=== PATIENT | female | born 1955 | race Caucasian/White ===

== ENCOUNTER 2018-01-31 13:48 | Inpatient (IN) | payer OTHER ==
[2018-01-31] MEDS: SOD CHLORIDE 0.9% 1,000 ML IV (14:48)
[2018-01-31] MEDS: morphine 4 MG/ML VIAL IV (14:48)
[2018-01-31] MEDS: ONDANSETRON 4 MG INJ IV (14:48)
[2018-01-31 14:53] LABS: ADD MAN DIFF? NO
[2018-01-31 14:55] LABS: BASOPHILS % 0.5 % (0.0-2.0); EOSINOPHILS # 0.2 10^3/ul (0.0-0.5); EOSINOPHILS % 2.5 % (0.0-7.0); HEMOGLOBIN 14.5 g/dl (12.0-16.0); LYMPHOCYTES # 1.5 10^3/ul (0.8-2.9); LYMPHOCYTES % 25.6 % (15.0-51.0); MEAN CORPUSCULAR HEMOGLOBIN 28.4 pg (29.0-33.0); MEAN CORPUSCULAR VOLUME 86.1 fl (82.0-101.0); MEAN PLATELET VOLUME 9.6 fl (7.4-10.4); MONOCYTE # 0.5 10^3/ul (0.3-0.9); MONOCYTES % 8.6 % (0.0-11.0); NEUTROPHIL # 3.8 10^3/ul (1.6-7.5); NEUTROPHILS % 62.6 % (39.0-77.0); PLATELET COUNT 268 10^3/UL (140-415); RED BLOOD COUNT 5.11 10^6/ul (4.20-5.40); RED CELL DISTRIBUTION WIDTH 12.4 % (11.5-14.5)
[2018-01-31 15:14] LABS: ALANINE AMINOTRANSFERASE 47 IU/L (13-69); ALBUMIN 4.1 g/dl (3.3-4.9); ALBUMIN/GLOBULIN RATIO 1.17; ALKALINE PHOSPHATASE 63 IU/L (42-121); ANION GAP 13 (8-16); ASPARTATE AMINO TRANSFERASE 37 IU/L (15-46); BILIRUBIN,INDIRECT 0.7 mg/dl (0-1.1); BILIRUBIN,TOTAL 0.7 mg/dl (0.2-1.3); BLOOD UREA NITROGEN 9 mg/dl (7-20); CALCIUM 9.5 mg/dl (8.4-10.2); CARBON DIOXIDE 29 mmol/L (21-31); CHLORIDE 107 mmol/L (97-110); CREATININE 1.14 mg/dl (0.44-1.00); GLUCOSE 104 mg/dl (70-220); LIPASE 105 U/L (23-300); POTASSIUM 3.7 mmol/L (3.5-5.1); SODIUM 145 mmol/L (135-144); TOTAL PROTEIN 7.6 g/dl (6.1-8.1)
[2018-01-31 17:09] LABS: ADD UMIC YES; UR ASCORBIC ACID NEGATIVE (NEGATIVE); UR BACTERIA FEW /HPF (NONE SEEN); UR BILIRUBIN (Dip) NEGATIVE (NEGATIVE); UR BLOOD (Dip) 1+ mg/dL (NEGATIVE); UR CLARITY CLEAR (CLEAR); UR COLOR STRAW (YELLOW); UR GLUCOSE (Dip) NEGATIVE (NEGATIVE); UR KETONES (Dip) NEGATIVE (NEGATIVE); UR LEUKOCYTE ESTERASE (Dip) 2+ Leu/ul (NEGATIVE); UR NITRITE (Dip) NEGATIVE (NEGATIVE); UR NONSQUAMOUS EPITHELIAL CELL 1 /HPF (NONE SEEN); UR RBC 3 /HPF (0-5); UR SPECIFIC GRAVITY (Dip) 1.008 (1.003-1.030); UR SQUAMOUS EPITHELIAL CELL FEW /HPF (FEW); UR TOTAL PROTEIN (Dip) NEGATIVE (NEGATIVE); UR UROBILINOGEN (Dip) NEGATIVE (NEGATIVE); UR WBC 9 /HPF (0-5)
[2018-01-31] MEDS ORDERED: ACETAMINOPHEN 325 MG TAB PO (18:30)
[2018-01-31] MEDS ORDERED: NACL 0.9% 3 ML SYG IV (18:30)
[2018-01-31] MEDS ORDERED: ONDANSETRON 4 MG INJ IV ×2 (18:30)
[2018-01-31 18:56] LABS: LACTIC ACID 0.9 mmol/L (0.5-2.0)
[2018-01-31] MEDS: PANTOPRAZOLE 40 MG INJ IV (19:10)
[2018-01-31] MEDS: DEXTROSE 5%-0.45% NACL 1,000 ML IV (19:11)
[2018-01-31] MEDS: HYDROmorphONE 0.5 MG/0.5 ML SYG IV (19:43)
[2018-02-01] MEDS: PANTOPRAZOLE 40 MG INJ IV ×2 (06:45→18:06)
[2018-02-01 06:55] LABS: ADD MAN DIFF? NO
[2018-02-01 07:05] LABS: WHITE BLOOD COUNT 4.1 10^3/ul (4.8-10.8)
[2018-02-01 07:05] LABS: BASOPHILS % 0.7 % (0.0-2.0); EOSINOPHILS # 0.3 10^3/ul (0.0-0.5); HEMATOCRIT 42.3 % (37.0-47.0); HEMOGLOBIN 13.8 g/dl (12.0-16.0); LYMPHOCYTES # 1.3 10^3/ul (0.8-2.9); LYMPHOCYTES % 31.9 % (15.0-51.0); MEAN CORPUSCULAR HEMOGLOBIN 28.4 pg (29.0-33.0); MEAN CORPUSCULAR HGB CONC 32.6 g/dl (32.0-37.0); MEAN PLATELET VOLUME 9.7 fl (7.4-10.4); MONOCYTE # 0.4 10^3/ul (0.3-0.9); MONOCYTES % 8.7 % (0.0-11.0); NEUTROPHIL # 2.2 10^3/ul (1.6-7.5); NEUTROPHILS % 52.5 % (39.0-77.0); PLATELET COUNT 245 10^3/UL (140-415); RED BLOOD COUNT 4.86 10^6/ul (4.20-5.40); RED CELL DISTRIBUTION WIDTH 12.5 % (11.5-14.5)
[2018-02-01 07:38] LABS: ALANINE AMINOTRANSFERASE 38 IU/L (13-69); ALBUMIN 3.8 g/dl (3.3-4.9); ALBUMIN/GLOBULIN RATIO 1.31; ALKALINE PHOSPHATASE 54 IU/L (42-121); ANION GAP 11 (8-16); ASPARTATE AMINO TRANSFERASE 39 IU/L (15-46); BILIRUBIN,INDIRECT 0.8 mg/dl (0-1.1); BILIRUBIN,TOTAL 0.8 mg/dl (0.2-1.3); BLOOD UREA NITROGEN 10 mg/dl (7-20); CALCIUM 8.9 mg/dl (8.4-10.2); CARBON DIOXIDE 28 mmol/L (21-31); CHLORIDE 107 mmol/L (97-110); CHOL/HDL RATIO 4.2 RATIO; CHOLESTEROL 206 mg/dl (100-200); CREATININE 0.93 mg/dl (0.44-1.00); GLUCOSE 96 mg/dl (70-220); HDL CHOLESTEROL 48 mg/dl (35-98); LDL CHOLESTEROL,CALCULATED 138 mg/dl; MAGNESIUM 1.9 mg/dl (1.7-2.5); PHOSPHORUS 3.8 mg/dl (2.5-4.9); POTASSIUM 3.5 mmol/L (3.5-5.1); SODIUM 142 mmol/L (135-144); TOTAL PROTEIN 6.7 g/dl (6.1-8.1); TRIGLYCERIDES 99 mg/dl (0-149)
[2018-02-01 07:54] LABS: HEMOGLOBIN A1C 5.7 % (0-5.9)
[2018-02-01] MEDS: DEXTROSE 5%-0.45% NACL 1,000 ML IV ×2 (08:13→14:54)
[2018-02-01] MEDS: ATENOLOL 25 MG TAB PO (08:18)
[2018-02-01] MEDS ORDERED: CEFAZOLIN 1 GM INJ (11:08)
[2018-02-01] MEDS ORDERED: PROPOFOL 20 ML (11:08)
[2018-02-01] MEDS ORDERED: ROCURONIUM 50 MG INJ (11:08)
[2018-02-01] MEDS ORDERED: MIDAZOLAM 1 MG/ML 2 ML INJ (11:08)
[2018-02-01] MEDS ORDERED: ROPIVACAINE 0.5 % 30 ML VIAL (11:09)
[2018-02-01] MEDS ORDERED: BUPIVACAINE 0.5% (SDV) 30 ML INJ (11:48)
[2018-02-01] MEDS: BUPIVACAINE 0.25% (MPF) 30 ML INJ (12:22)
[2018-02-01] MEDS ORDERED: MEPERIDINE 25 MG INJ IV (12:30)
[2018-02-01] MEDS ORDERED: LABETALOL HCL 20MG INJ IV (12:30)
[2018-02-01] MEDS ORDERED: DIPHENHYDRAMINE 50 MG INJ IV (12:30)
[2018-02-01] MEDS ORDERED: HYDROmorphONE 1 MG/5 ML IV SYRINGE IV ×2 (12:30)
[2018-02-01] MEDS: hydrALAzine 20 MG INJ IV ×2 (13:31→13:39)
[2018-02-01] MEDS: ONDANSETRON 4 MG INJ IV (13:43)
[2018-02-01] MEDS: HYDROmorphONE 1 MG/5 ML IV SYRINGE IV (13:44)
[2018-02-01] MEDS: HYDROmorphONE 0.5 MG/0.5 ML SYG IV ×3 (14:53→23:27)
[2018-02-01] MEDS ORDERED: CEFAZOLIN 1 GM/50 ML (PMX) 50 ML IVPB (21:00)
[2018-02-02] MEDS ORDERED: EPHEDrine SULFATE 50 MG/5 ML SYG (00:10)
[2018-02-02] MEDS ORDERED: NEOSTIGMINE 3 MG/3 ML SYRINGE (00:10)
[2018-02-02] MEDS ORDERED: ONDANSETRON 4 MG INJ (00:10)
[2018-02-02] MEDS ORDERED: METOCLOPRAMIDE 10 MG INJ (00:10)
[2018-02-02] MEDS ORDERED: PROPOFOL 0 ML (00:10)
[2018-02-02] MEDS ORDERED: GLYCOPYRROLATE 0.4 MG INJ ×2 (00:10)
[2018-02-02] MEDS: PANTOPRAZOLE 40 MG INJ IV (05:36)
[2018-02-02] MEDS: DEXTROSE 5%-0.45% NACL 1,000 ML IV ×2 (05:36→10:16)
[2018-02-02] MEDS: HYDROmorphONE 0.5 MG/0.5 ML SYG IV (05:42)
[2018-02-02 06:03] LABS: ADD MAN DIFF? NO
[2018-02-02 06:11] LABS: BASOPHILS % 0.5 % (0.0-2.0); EOSINOPHILS # 0.2 10^3/ul (0.0-0.5); EOSINOPHILS % 3.8 % (0.0-7.0); HEMATOCRIT 40.5 % (37.0-47.0); HEMOGLOBIN 13.2 g/dl (12.0-16.0); LYMPHOCYTES # 1.5 10^3/ul (0.8-2.9); LYMPHOCYTES % 23.9 % (15.0-51.0); MEAN CORPUSCULAR HEMOGLOBIN 28.5 pg (29.0-33.0); MEAN CORPUSCULAR HGB CONC 32.6 g/dl (32.0-37.0); MEAN CORPUSCULAR VOLUME 87.5 fl (82.0-101.0); MEAN PLATELET VOLUME 9.7 fl (7.4-10.4); MONOCYTE # 0.5 10^3/ul (0.3-0.9); MONOCYTES % 8.3 % (0.0-11.0); NEUTROPHIL # 3.8 10^3/ul (1.6-7.5); NEUTROPHILS % 63.3 % (39.0-77.0); PLATELET COUNT 250 10^3/UL (140-415); RED BLOOD COUNT 4.63 10^6/ul (4.20-5.40); RED CELL DISTRIBUTION WIDTH 12.7 % (11.5-14.5)
[2018-02-02 06:11] LABS: WHITE BLOOD COUNT 6.1 10^3/ul (4.8-10.8)
[2018-02-02 06:38] LABS: PHOSPHORUS 4.7 mg/dl (2.5-4.9)
[2018-02-02 06:45] LABS: ALANINE AMINOTRANSFERASE 61 IU/L (13-69); ALBUMIN 3.5 g/dl (3.3-4.9); ALBUMIN/GLOBULIN RATIO 1.12; ALKALINE PHOSPHATASE 52 IU/L (42-121); ANION GAP 11 (8-16); ASPARTATE AMINO TRANSFERASE 79 IU/L (15-46); BILIRUBIN,INDIRECT 0.7 mg/dl (0-1.1); BILIRUBIN,TOTAL 0.7 mg/dl (0.2-1.3); BLOOD UREA NITROGEN 9 mg/dl (7-20); CARBON DIOXIDE 31 mmol/L (21-31); CHLORIDE 104 mmol/L (97-110); CREATININE 0.97 mg/dl (0.44-1.00); GLUCOSE 88 mg/dl (70-220); POTASSIUM 3.3 mmol/L (3.5-5.1); SODIUM 143 mmol/L (135-144); TOTAL PROTEIN 6.6 g/dl (6.1-8.1)
[2018-02-02] MEDS: ATENOLOL 25 MG TAB PO (09:50)
[2018-02-02] MEDS: HYDROCODONE/APAP (5/325) TAB PO (09:55)
[2018-02-02] MEDS: POLYETHYLENE GLYCOL 17 GM PACKET PO (13:14)
== END 2018-02-02 13:50 | disposition home or self-care (01) | DRG 418 ==
LOC: E/R 13:48 → 2NE 18:23
PROC: 0FT44ZZ Resection of Gallbladder, Percutaneous Endoscopic Approach (ICD-10-PCS; principal; 2018-02-01 11:00)
DX: K80.44 Calculus of bile duct with chronic cholecystitis without obstruction (principal); N17.9 Acute kidney failure, unspecified; I10 Essential (primary) hypertension
CPT/HCPCS: 36415; 76705; 80053; 80061; 81001; 83036; 83605; 83690; 83735; 84100; 85025; 87081; 88304; 96361; 96374; 96375; 99285-25